=== PATIENT | male | born 1965 | race Two or more races ===

== ENCOUNTER 2025-03-27 00:27 | Emergency (ER) | payer OTHER, SELFPAY ==
[~2025-03-27] VITALS: Ht 172.7 cm; Wt 104.1 kg
[2025-03-27] MEDS: KETOROLAC TROMETH 60MG/2ML VIAL IM ONE (01:30)
[2025-03-27] MEDS: HYDROcodone-ACET 10/325MG TAB PO ONE (02:26)
--- NOTE | 2025-03-27 02:39 | ED.PDOC ---
General HPI Comments Patient is a pleasant but morbidly obese 59-year-old male who arrives to the ED today for evaluation of lower abdominal pain that radiates from his left thigh for the past several hours. Daughter states that the pain began and has been relatively unrelenting. Patient denies any history of kidney stone concerns or urinary tract issues. Patient denies any fever nausea or vomiting. Vital signs were stable at arrival. Chief Complaint: Abdominal Pain Time Seen by MD: 00:38 Reviewed notes: Nurses Notes Allergies: Coded Allergies: No Known Drug Allergy (Verified Allergy, Unknown, 03/27/25) Home Meds Active Scripts Hydrocodone-Acetaminophen (Hydrocodone Bitartrate/AC 5-325 mg) 1 Tab Tab, 1 TAB PO Q6HP PRN, #15 TAB Prov:PAZ QUIROGA PAC 03/27/25 Ibuprofen Micronized (Ibuprofen) 800 Mg Tab, 800 MG PO Q8HP PRN, #30 TAB Prov:PAZ QUIROGA PAC 03/27/25 Information Source: Patient, Relative (Child) Mode of Arrival: Ambulatory Severity: Moderate Timing: Hours Duration: Since onset Prehospital treatment: None Onset: Spontaneous Symptoms: Other (Left-sided flank pain radiating into the lower belly) History of: None Location: Abdomen, (L)Flank associated signs and symptoms: Abdominal Pain Past Medical History PAST MEDICAL HISTORY: Denies Surgical History: Denies all surgeries Family History Family History: Reviewed,noncontributory to illness, No family hx of Cancer, No family hx of DM, No family hx of Heart juve, No family hx of HTN, No family hx ofKidney juve, No family hx of Liver juve, No family hx of Lung juve, No family hx of Stroke Social History Smoker: Non-Smoker Alcohol: Denies ETOH Use Drugs: Denies Drug Use Lives In: Home Constitutional: denies: chills, diaphoresis, fatigue, fever, malaise, sweats, weakness, others EENTM: denies: blurred vision, double vision, ear bleeding, ear discharge, ear drainage, ear pain, ear ringing, eye pain, eye redness, hearing loss, mouth pain, mouth swelling, nasal discharge, nose bleeding, nose congestion, nose pain, photophobia, tearing, throat pain, throat swelling, voice changes, others Respiratory: denies: cough, hemoptysis, orthopnea, SOB at rest, shortness of breath, SOB with excertion, stridor, wheezing, others Cardiovascular: denies: chest pain, dizzy spells, diaphoresis, Dyspnea on exertion, edema, irregular heart beat, left arm pain, lightheadedness, palpitations, PND, syncope, others Gastrointestinal: reports: abdominal pain; denies: abdomen distended, blood streaked bowels, constipated, diarrhea, dysphagia, difficulty swallowing, hematemesis, melena, nausea, poor appetite, poor fluid intake, rectal bleeding, rectal pain, vomiting, others Genitourinary: denies: burning, dysuria, flank pain, frequency, hematuria, incontinence, penile discharge, penile sore, pain, testicle pain, testicle swelling, urgency, others Neurological: denies: dizziness, fainting, headache, left sided numbness, left sided weakness, numbness, paresthesia, pre-existing deficit, right sided numbness, right sided weakness, seizure, speech problems, tingling, tremors, weakness, others Musculoskeletal: denies: back pain, gout, joint pain, joint swelling, muscle pain, muscle stiffness, neck pain, others Integumetry: denies: bruises, change in color, change in hair/nails, dryness, laceration, lesions, lumps, rash, wounds, others Allergic/Immunocompromised: denies: Difficulty Healing, Frequent Infections, Hives, Itching, others Hematologic/Lymphatic: denies: anemia, blood clots, easy bleeding, easy b ruising, swollen glands, others Endocrine: denies: excessive hunger, excessive sweating, excessive thirst, excessive urination, flushing, intolerance to cold, intolerance to heat, unexplained weight gain, unexplained weight loss, others Psychiatric: denies: anxiety, bipolar disorder, depression, hopeless, panic disorder, schizophrenia, sleepless, suicidal, others Physical Exam General Appearance: Moderate Distress (Moderate distress due to left-sided flank pain and belly pain concerns.), Normal HEENT: Normal ENT Inspection, Pharynx Normal, TMs Normal Neck: Full Range of Motion, Non-Tender, Normal, Normal Inspection Respiratory: Chest Non-Tender, Lungs Clear, No Accessory Muscle Use, No Respiratory Distress, Normal Breath Sounds Cardiovascular: No Edema, No JVD, No Murmur, No Gallop, Normal Peripheral Pulses, Regular Rate/Rhythm Breast Exam: Deferred Gastrointestinal: Tenderness (Diffuse left-sided tenderness to palpation throughout the flank region extending into the lower abdomen. Difficult to assess due to body habitus. Unable to assess pulsatile masses.) Genitalia: Deferred Pelvic: Deferred Rectal: Deferred Extremities: No calf tenderness, Normal capillary refill, Normal inspection, Normal range of motion, Non-tender, No pedal edema Neurologic: Alert, No Motor Deficits, Normal Affect, Normal Mood, No Sensory Deficits Cerebellar Function: Normal Reflexes: Normal Skin: Dry, Normal Color, Warm Lymphatic: No Adenopathy Was a procedure done? Was a procedure done?: No Differential Diagnosis Kidney stone (Female): Other (Sinus, kidney stone, UTI, musculoskeletal pain) X-Ray, Labs, Meds, VS Vital Signs Date Time Temp Pulse Resp B/P (MAP) Pulse Ox O2 Delivery O2 Flow Rate FiO2 03/27/25 04:38 98.2 67 18 138/84 (102) 96 98.2 03/27/25 01:17 99.5 78 16 148/89 (108) 98 99.5 Lab Test 03/27/25 00:00 Range/Units Urine Color Light-yellow Yellow Urine Clarity Clear Clear Urine pH 6.0 5.0-9.0 Urine Specific [place] 1.017 1.001-1.035 Urine Protein Negative Negative Urine Ketones Negative Negative Urine Blood Negative Negative /uL Urine Nitrite Negative Negative Urine Bilirubin Negative Negative Urine Urobilinogen Normal Negative mg/dL Urine Leukocyte Esterase Negative Negative /uL Urine RBC None seen 0 - 3 /hpf Urine Microscopic WBC < 1 0-3 /HPF Urine Squamous Epithelial Cells None seen <5 /hpf Urine Bacteria None seen None Seen /hpf Urine Glucose Trace Normal mg/dL Current Medications Medications (Trade) Dose Ordered Sig/Tigist Route Start Time Stop Time Status Last Admin Ketorolac Tromethamine (Toradol Injection) 30 mg ONCE ONCE IM 03/27/25 01:30 03/27/25 01:31 DC 03/27/25 01:30 Acetaminophen/ Hydrocodone Bitart ([place] 10/325MG Tab) 1 tab ONCE ONCE PO 03/27/25 01:30 03/27/25 01:31 DC 03/27/25 02:26 PROCEDURE(s): ABPL - CT AB PEL WO CON-NO ORAL OR IV REASON: Diffuse left-sided abdominal pain ORDER NUMBER(s): [id number], ACCESSION NUMBER(s): [id number] EXAM: CT CT AB PEL WO CON-NO ORAL OR IV HISTORY: Diffuse left-sided abdominal pain COMPARISON: None TECHNIQUE: Helical CT images of the abdomen and pelvis were performed without IV contrast. Sagittal and coronal reformatted images were obtained. This CT exam was performed using one or more of the following dose reduction techniques: Automated exposure control, adjustment of the mA and/or kv according to patient size, or the use of iterative reconstruction techniques. Radiation Dose: Abdomen/Pelvis: CTDIvol 23.51 mGy, DLP 1497.89 mGy*cm. FINDINGS: CT abdomen: The lung bases are clear. The heart is not enlarged. The liver is borderline diffuse fatty density. The gallbladder is surgically absent. There is xgyl-cj-moofkxig left hydronephrosis and hydroureter. There is left perinephric and periureteral fluid. The noncontrast spleen, pancreas, right kidney, and bilateral adrenal glands are unremarkable. No abdominal aortic aneurysm. CT pelvis: No abnormal bowel dilatation or free air. There is left pelvic fluid. The prostate is moderately enlarged. The appendix is not dilated. There is 2 mm calculus which is either in the left ureterovesical junction versus dependent portion of the urinary bladder lumen (image 90, series 2). There is moderate to severe lower lumbar degenerative disc disease and facet arthropathy with multilevel significant neural foraminal stenosis bilaterally. There is a lumbosacral transitional vertebrae. IMPRESSION: 1. Leav-yn-kvibqigm left hydronephrosis and hydroureter with a 2 mm calculus in the left ureterovesical junction versus urinary bladder lumen. There is associated left perinephric and periureteral fluid. 2. Postoperative changes cholecystectomy. 3. Moderate prostatic enlargement. 4. Lumbar degenerative disc disease and lumbosacral transitional vertebrae. Consider follow-up noncontrast MRI of the lumbar spine on outpatient basis for better characterization, especially if the patient complains of lower extremity radicular symptoms. 5. No evidence of bowel obstruction, acute appendicitis, or other acute process in the abdomen or pelvis. X-Ray, Labs, Meds, VS Comment Urinalysis was unremarkable for any signs of kidney stone or UTI/pyelonephritis. A CT study has been ordered and once completed, those results will be reviewed by Dr. Betancourt for continued management. Addendum by Dr. Asia Lea: CT abdomen and pelvis results reviewed: IMPRESSION: 1. Yoot-vk-qqljphyq left hydronephrosis and hydroureter with a 2 mm calculus in the left ureterovesical junction versus urinary bladder lumen. There is associated left perinephric and periureteral fluid. 2. Postoperative changes cholecystectomy. 3. Moderate prostatic enlargement. 4. Lumbar degenerative disc disease and lumbosacral transitional vertebrae. Consider follow-up noncontrast MRI of the lumbar spine on outpatient basis for better characterization, especially if the patient complains of lower extremity radicular symptoms. 5. No evidence of bowel obstruction, acute appendicitis, or other acute process in the abdomen or pelvis. Patient received p.o. [place] and IM Toradol with improvement of pain. Vitals were stable on re-evaluation. UA does not show evidence of UTI. Patient appears stable for discharge with close outpatient follow-up with his primary physician for referral to an urologist. Patient also referred to Dr. Marin. Rx [place], ibuprofen, Flomax Time of 1ST Reevaluation: 02:38 Reevaluation 1ST: Improved Time of 2ND Reevaluation: 05:33 Reevaluation 2ND: Improved Consultation: PCP Patient Education/Counseling: Diagnosis, Treatment Family Education/Counseling: Diagnosis, Treatment SEPSIS Sepsis Screen Date sepsis recognized/suspect: Mar 27, 2025 Time Sepsis recognized/suspect: 010 Recent Procedure: No On Antibiotic Therapy: No Respiratory Rate >20: No Heart Rate >90: No Temp<36 C (96.8 F) or >38.3 C: No SBP <90 or MAP <65 mmHG: No New Acute Mental Status Change: No Is the patient on CPAP, BIPAP,: No Physician Orders Ct Ab Pel Wo Con-No Oral Or Iv (03/27/25 02:56) Vital Signs Date Time Temp Pulse Resp B/P (MAP) Pulse Ox O2 Delivery O2 Flow Rate FiO2 03/27/25 04:38 98.2 67 18 138/84 (102) 96 98.2 03/27/25 01:17 99.5 78 16 148/89 (108) 98 99.5 Medications Medications Dose Ordered Sig/Tigist Route Start Time Stop Time Status Last Admin Dose Admin Acetaminophen/ Hydrocodone Bitart 1 tab ONCE ONCE PO 03/27/25 01:30 03/27/25 01:31 DC 03/27/25 02:26 Ketorolac Tromethamine 30 mg ONCE ONCE IM 03/27/25 01:30 03/27/25 01:31 DC 03/27/25 01:30 Departure 1 Departure Time of Disposition: 02:38 Impression: Primary Impression: Left flank pain Additional Impression: Hydronephrosis concurrent with and due to calculi of kidney and ureter Disposition: HOME / SELF CARE / HOMELESS Condition: Stable Referrals: JUDE MARIN MD Additional Instructions: Your pain is likely due to a kidney stone which is passing. Please see the CT report enclosed below. I have prescribed pain medication and medication to help the stone pass faster. Follow-up with your primary doctor in 1-2 days for referral to an urologist for further evaluation of your kidney stone. I have also referred you to Dr. Marin, urologist. Take pain medication as needed for symptomatic relief. [place] [id number] Ph: [phone] DIAGNOSTIC IMAGING Diagnostic Imaging Report : [id number] Signed PATIENT: JENNIFER ROLAND ACCT: [id number] UNIT: [id number] : 1965 LOC: ER ROOM / BED: / AGE / SEX: 59 / M ADM STATUS: REG ER SERVICE [id number] ORDERING PHYSICIAN: PAZ QUIROGA PAC PROCEDURE(s): ABPL - CT AB PEL WO CON-NO ORAL OR IV REASON: Diffuse left-sided abdominal pain ORDER NUMBER(s): [id number], ACCESSION NUMBER(s): [id number] EXAM: CT CT AB PEL WO CON-NO ORAL OR IV HISTORY: Diffuse left-sided abdominal pain COMPARISON: None TECHNIQUE: Helical CT images of the abdomen and pelvis were performed without IV contrast. Sagittal and coronal reformatted images were obtained. This CT exam w as performed using one or more of the following dose reduction techniques: Automated exposure control, adjustment of the mA and/or kv according to patient size, or the use of iterative reconstruction techniques. Radiation Dose: Abdomen/Pelvis: CTDIvol 23.51 mGy, DLP 1497.89 mGy*cm. FINDINGS: CT abdomen: The lung bases are clear. The heart is not enlarged. The liver is borderline diffuse fatty density. The gallbladder is surgically absent. There is rdmi-sq-irgodlao left hydronephrosis and hydroureter. There is left perinephric and periureteral fluid. The noncontrast spleen, pancreas, right kidney, and bilateral adrenal glands are unremarkable. No abdominal aortic aneurysm. CT pelvis: No abnormal bowel dilatation or free air. There is left pelvic fluid . The prostate is moderately enlarged. The appendix is not dilated. There is 2 mm calculus which is either in the left ureterovesical junction versus dependent portion of the urinary bladder lumen (image 90, series 2). There is moderate to severe lower lumbar degenerative disc disease and facet arthropathy with multilevel significant neural foraminal stenosis bilaterally. There is a lumbosacral transitional vertebrae. IMPRESSION: 1. Sadj-rv-xndnmmqf left hydronephrosis and hydroureter with a 2 mm calculus in the left ureterovesical junction versus urinary bladder lumen. There is associated left perinephric and periureteral fluid. 2. Postoperative changes cholecystectomy. 3. Moderate prostatic enlargement. 4. Lumbar degenerative disc disease and lumbosacral transitional vertebrae. Consider follow-up noncontrast MRI of the lumbar spine on outpatient basis for better characterization, especially if the patient complains of lower extremity radicular symptoms. 5. No evidence of bowel obstruction, acute appendicitis, or other acute process in the abdomen or pelvis. ATED BY: RADHA HINTON MD e-Prescriptions Tamsulosin Hcl (Flomax) 0.4 Mg Cap 1 CAP PO DAILY, #20 CAP 11 Refills One tab p.o. daily, 30 minutes after same meal until pain resolves. Prov: ALEXUS LIM MD 03/27/25 Hydrocodone-Acetaminophen (Hydrocodone Bitartrate/AC 5-325 mg) 1 Tab Tab 1 TAB PO Q6HP PRN, #15 TAB Prov: PAZ QUIROGA PAC 03/27/25 Ibuprofen Micronized (Ibuprofen) 800 Mg Tab 800 MG PO Q8HP PRN, #30 TAB Prov: PAZ QUIROGA PAC 03/27/25 Discharged With: Self, Relative Critical Care Note Critical Care Time?: No Stability Stability form required: No Heart Score Heart Score: Heart Score Response (Comments) Value History N/A 0 EKG N/A 0 Age N/A 0 Risk Factors N/A 0 Troponin N/A 0 Total 0 PAZ QUIROGA Mar 27, 2025 02:39 ALEXUS LIM MD Mar 27, 2025 05:36
[2025-03-27 02:44] LABS: Urine Protein, UAD Negative (Negative)
[2025-03-27] MEDS ORDERED: IBUP-1455 PO (02:58)
[2025-03-27] MEDS ORDERED: HYDR-4902 PO (02:58)
[2025-03-27 04:38] VITALS: BP 138/84; PULSE 67; RESP 18; TEMP 98.2; O2SAT 96
--- NOTE | 2025-03-27 05:24 | DVH ---
EXAM: CT CT AB PEL WO CON-NO ORAL OR IV HISTORY: Diffuse left-sided abdominal pain COMPARISON: None TECHNIQUE: Helical CT images of the abdomen and pelvis were performed without IV contrast. Sagittal a nd coronal reformatted images were obtained. This CT exam was performed using one or more of the foll owing dose reduction techniques: Automated exposure control, adjustment of the mA and/or kv according to patient size, or the use of iterative reconstruction techniques. Radiation Dose: Abdomen/Pelvis: CTDIvol 23.51 mGy, DLP 1497.89 mGy*cm. FINDINGS: CT abdomen: The lung bases are clear. The heart is not enlarged. The liver is borderline diffuse fatt y density. The gallbladder is surgically absent. There is oebk-ub-wrkwyvxf left hydronephrosis and hy droureter. There is left perinephric and periureteral fluid. The noncontrast spleen, pancreas, right kidney, and bilateral adrenal glands are unremarkable. No abdominal aortic aneurysm. CT pelvis: No abnormal bowel dilatation or free air. There is left pelvic fluid. The prostate is mod erately enlarged. The appendix is not dilated. There is 2 mm calculus which is either in the left ur eterovesical junction versus dependent portion of the urinary bladder lumen (image 90, series 2). The re is moderate to severe lower lumbar degenerative disc disease and facet arthropathy with multilevel significant neural foraminal stenosis bilaterally. There is a lumbosacral transitional vertebrae. IMPRESSION: 1. Nqmp-du-knjojmfr left hydronephrosis and hydroureter with a 2 mm calculus in the left ureterovesic al junction versus urinary bladder lumen. There is associated left perinephric and periureteral fluid . 2. Postoperative changes cholecystectomy. 3. Moderate prostatic enlargement. 4. Lumbar degenerative disc disease and lumbosacral transitional vertebrae. Consider follow-up nonco ntrast MRI of the lumbar spine on outpatient basis for better characterization, especially if the pat ient complains of lower extremity radicular symptoms. 5. No evidence of bowel obstruction, acute appendicitis, or other acute process in the abdomen or pel vis.
[2025-03-27] MEDS ORDERED: TAMS-35 PO (05:34)
== END 2025-03-27 06:23 | disposition home or self-care (01) ==
LOC: ER 00:32 → EDBD 00:32 → ER 06:22
DX: N13.2 Hydronephrosis with renal and ureteral calculous obstruction (principal)
CPT/HCPCS: 74176; 81001; 96372; 99285; J1885